=== PATIENT | female | born 1990 | race Caucasian/White ===

== ENCOUNTER 2017-04-10 13:25 | Emergency (ER) | payer OTHER ==
[2017-04-10 14:35] VITALS: BP 121/82
--- NOTE | 2017-04-10 15:20 | UC ---
UC General HPI - HPI Summary HPI Summary: 26 year old female with Gi issues. states yesterday was vomiting with diarrhea, symptoms have improved but patient needs a note to return to work. No more Sx feels well no fever. no n/v/d at this time. [ End ] - History of Current Complaint Chief Complaint: UCGeneralIllness Stated Complaint: BACK TO WORK NOTE Time Seen by Provider: 04/10/17 14:46 Hx Obtained From: Patient Hx Last Menstrual Period: 04/03/17 Onset/Duration: Gradual Onset Onset Severity: Moderate Current Severity: None - Allergy/Home Medications Allergies/Adverse Reactions: Allergies Allergy/AdvReac Type Severity Reaction Status Date / Time No Known Allergies Allergy Verified 04/10/17 14:35 Home Medications: Home Medications NK [No Home Medications Reported] 04/10/17 [History Confirmed 04/10/17] PMH/Surg Hx/FS Hx/Imm Hx Previously Healthy: Yes - Surgical History Surgical History: Yes Surgery Procedure, Year, and Place: gallbladder removal - Social History Occupation: Employed Full-time Lives: With Family Alcohol Use: None Substance Use Type: None Smoking Status (MU): Light Every Day Tobacco Smoker Type: Cigarettes Amount Used/How Often: 6 per day Review of Systems Gastrointestinal: Diarrhea - yesterday, Nausea Is Patient Immunocompromised?: No All Other Systems Reviewed And Are Negative: Yes Physical Exam Triage Information Reviewed: Yes Appearance: Well-Appearing, No Pain Distress, Well-Nourished Vital Signs: Initial Vital Signs Temp 98.1 F 04/10/17 14:24 Pulse 75 04/10/17 14:24 Resp 14 04/10/17 14:24 BP 121/82 04/10/17 14:24 Pulse Ox 100 04/10/17 14:24 Vital Signs Reviewed: Yes Eye Exam: Normal ENT Exam: Normal Dental Exam: Normal Neck exam: Normal Neck: Positive: 1 Respiratory Exam: Normal Cardiovascular Exam: Normal Abdominal Exam: Normal Musculoskeletal Exam: Normal Neurological Exam: Normal Psychological Exam: Normal Skin Exam: Normal Course/Dx - Course Course Of Treatment: sx resolved at this time. if sx return then go home and no work . she is agreeable - Differential Dx - Multi-Symptom Provider Diagnoses: Gastroenteritis Discharge - Discharge Plan Condition: Guarded Disposition: HOME Patient Education Materials: Gastroenteritis (ED) Forms: *Work Release
== END 2017-04-10 15:27 | disposition home or self-care (01) ==
LOC: UCCORT 13:25
DX: K52.9 Noninfective gastroenteritis and colitis, unspecified (principal); Z90.49 Acquired absence of other specified parts of digestive tract; F17.210 Nicotine dependence, cigarettes, uncomplicated
CPT/HCPCS: 99201; G0463

== ENCOUNTER 2017-07-16 12:13 | Emergency (ER) | payer OTHER ==
[2017-07-16 12:49] VITALS: BP 125/80
[2017-07-16] MEDS: Acetaminophen TAB* 325 MG PO ONE (13:09)
--- NOTE | 2017-07-16 13:14 | UC ---
HPI Febrile Illness - HPI Summary HPI Summary: Fever, cough , congestion aching for 2 days. NO lung disease. Prior asthma as a child. - History of Current Complaint Chief Complaint: UCGeneralIllness Time Seen by Provider: 07/16/17 13:00 Hx Obtained From: Patient Hx Last Menstrual Period: 06/21/17 Onset/Duration: Started Days Ago Timing: Constant, Lasting Days Initial Severity: Moderate Current Severity: Moderate Pain Intensity: 7 Aggravating Factors: Nothing Alleviating Factors: OTC Medicine Associated Signs and Symptoms: Chills, Headache, Myalgia - Allergy/Home Medications Allergies/Adverse Reactions: Allergies Allergy/AdvReac Type Severity Reaction Status Date / Time No Known Allergies Allergy Verified 07/16/17 12:48 PMH/Surg Hx/FS Hx/Imm Hx Previously Healthy: No - childhood asthma. - Surgical History Surgical History: Yes Surgery Procedure, Year, and Place: gallbladder removal - Family History Known Family History: Positive: Other - Daughter was sick recently. - Social History Lives: With Family Alcohol Use: None Substance Use Type: None Smoking Status (MU): Light Every Day Tobacco Smoker Type: Cigarettes Amount Used/How Often: 6 per day Review of Systems ENT: Sore Throat, Sinus Congestion Respiratory: Cough Musculoskeletal: Myalgia Neurological: Headache All Other Systems Reviewed And Are Negative: Yes Physical Exam Triage Information Reviewed: Yes Appearance: Well-Appearing, No Pain Distress, Well-Nourished Vital Signs: Initial Vital Signs Temp 101.5 F 07/16/17 12:43 Pulse 115 07/16/17 12:43 Resp 18 07/16/17 12:43 BP 125/80 07/16/17 12:43 Pulse Ox 97 07/16/17 12:43 Vital Signs Reviewed: Yes Eyes: Positive: Conjunctiva Clear. Negative: Conjunctiva Inflamed ENT: Positive: Pharynx normal, Nasal congestion, TMs normal, Uvula midline. Negative: Pharyngeal erythema, Tonsillar swelling, Tonsillar exudate, Trismus, Muffled voice, Hoarse voice, Dental tenderness, Sinus tenderness Neck: Positive: Supple, Nontender, No Lymphadenopathy Respiratory: Positive: Lungs clear, Normal breath sounds, No respiratory distress, No accessory muscle use. Negative: Respiratory distress, Decreased breath sounds, Accessory muscle use, Crackles, Rhonchi, Stridor Cardiovascular: Positive: RRR, No Murmur, Pulses Normal, Brisk Capillary Refill Abdomen Description: Positive: No Organomegaly, Soft. Negative: Distended, Guarding Musculoskeletal: Positive: Strength Intact, ROM Intact, No Edema Neurological: Positive: Alert, Muscle Tone Normal. Negative: Fatigued Psychological: Positive: Age Appropriate Behavior Skin: Negative: rashes Course/Dx - Diagnoses Clinic Provider Diagnoses: influenza. Discharge - Sign-Out/Discharge Documenting (check all that apply): Discharge - Discharge Plan Condition: Good Disposition: HOME Patient Education Materials: Upper Respiratory Infection (ED) Referrals: ISAIAH Ureña [Primary Care Provider] - - Billing Disposition and Condition Condition: GOOD Disposition: HOME
== END 2017-07-16 13:28 | disposition home or self-care (01) ==
LOC: UCCORT 12:13
DX: F17.210 Nicotine dependence, cigarettes, uncomplicated (principal); J10.1 Influenza due to other identified influenza virus with other respiratory manifestations
CPT/HCPCS: 87502; 99212; A9270-GY; G0463

== ENCOUNTER 2017-09-04 08:22 | Emergency (ER) | payer OTHER ==
[2017-09-04 08:41] VITALS: BP 126/91
[2017-09-04] MEDS ORDERED: predniSONE TAB* 20 MG PO ONE (09:06)
--- NOTE | 2017-09-04 09:11 | ED ---
Skin Complaint - HPI Summary HPI Summary: 27 yr old with rash to arms, legs, trunk. Onset yesterday, and very itchy with hives. Denies tongue or lip swelling. Denies hoarse voice. Denies trouble breathing. No other complaints. - History of Current Complaint Chief Complaint: UCRash Time Seen by Provider: 09/04/17 08:53 Stated Complaint: RASH Hx Last Menstrual Period: 08/12/17 Pain Intensity: 0 - Allergy/Home Medications Allergies/Adverse Reactions: Allergies Allergy/AdvReac Type Severity Reaction Status Date / Time pine Allergy Hives Uncoded 09/04/17 08:42 Home Medications: Home Medications Loratadine? 1 tab PO Q24H PRN 09/04/17 [History Confirmed 09/04/17] PMH/Surg Hx/FS Hx/Imm Hx - Surgical History Surgery Procedure, Year, and Place: gallbladder removal Infectious Disease History: No Infectious Disease History: Denies: Traveled Outside the [place] in Last 30 Days - Family History Known Family History: Positive: Other - Daughter was sick recently. - Social History Alcohol Use: Rare Substance Use Type: Reports: Marijuana Substance Use Comment - Amount & Last Used: last night Smoking Status (MU): Former Smoker Type: Cigarettes Amount Used/How Often: 6 per day Review of Systems Constitutional: Negative Positive: Rash All Other Systems Reviewed And Are Negative: Yes Physical Exam Triage Information Reviewed: Yes Vital Signs On Initial Exam: Initial Vitals Temp Pulse Resp BP Pulse Ox 99.9 F 84 20 126/91 100 09/04/17 08:31 09/04/17 08:31 09/04/17 08:31 09/04/17 08:31 09/04/17 08:31 Vital Signs Reviewed: Yes Appearance: Positive: Well-Appearing, No Pain Distress Skin: Positive: Other - urticaria present on legs, arms, trunk. Head/Face: Positive: Normal Head/Face Inspection Eyes: Positive: EOMI ENT: Positive: Pharynx normal, Uvula midline. Negative: Muffled voice, Hoarse voice Neck: Positive: Nontender Respiratory/Lung Sounds: Positive: Clear to Auscultation, Breath Sounds Present Cardiovascular: Positive: RRR. Negative: Murmur Abdomen Description: Negative: Distended Musculoskeletal: Positive: Strength/ROM Intact Neurological: Positive: Sensory/Motor Intact, Alert, Oriented to Person Place, Time, CN Intact II-III Psychiatric: Positive: Normal Diagnostics - Vital Signs Vital Signs Temp Pulse Resp BP Pulse Ox 09/04/17 08:31 99.9 F 84 20 126/91 100 - Laboratory Lab Statement: Any lab studies that have been ordered have been reviewed, and results considered in the medical decision making process. Course/Dx - Diagnoses Provider Diagnoses: Urticaria Discharge - Sign-Out/Discharge Documenting (check all that apply): Discharge/Admit/Transfer - Discharge Plan Condition: Good Disposition: HOME Prescriptions: methylPREDNISolone [Medrol] 4 mg PO .SEE ALEXANDRE INSTRUCTION #1 [id number] Patient Education Materials: Urticaria (ED) Referrals: [facility] [place] [facility] [place] [facility] [Outside] - As Soon As Possible Non Staff,Doctor [Primary Care Provider] - - Billing Disposition and Condition Condition: GOOD Disposition: Home
== END 2017-09-04 09:22 | disposition home or self-care (01) ==
LOC: UCCORT 08:22
DX: L50.9 Urticaria, unspecified (principal); Z87.891 Personal history of nicotine dependence; Z91.09 Other allergy status, other than to drugs and biological substances
CPT/HCPCS: 99212; G0463; J7512

== ENCOUNTER 2018-08-10 17:29 | Emergency (ER) | payer OTHER ==
[2018-08-10 18:08] VITALS: BP 128/87
[2018-08-10] MEDS ORDERED: Acetaminophen TAB* 325 MG PO ONE (18:21)
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
== END 2018-08-10 19:43 | disposition home or self-care (01) ==
LOC: UCCORT 17:29
DX: S00.93XA Contusion of unspecified part of head, initial encounter (principal); Y04.0XXA Assault by unarmed brawl or fight, initial encounter; Y93.89 Activity, other specified; Y92.39 Other specified sports and athletic area as the place of occurrence of the external cause; J30.1 Allergic rhinitis due to pollen; Z87.891 Personal history of nicotine dependence
CPT/HCPCS: 70450; 70486; 72125; 84702; 99212; A9270-GY; G0463